=== PATIENT | male | born 1990 | race American Indian/Alaskan Native ===

== ENCOUNTER 2019-08-31 02:14 | Emergency (ER) | payer SELFPAY ==
--- NOTE | 2019-08-31 02:49 | Emergency Department Report ---
ED Psych HPI - General Chief Complaint: Psych Stated Complaint: HEARING VOICES/MH EVAL Time Seen by Provider: 08/31/19 02:39 Source: patient, RN notes reviewed Mode of arrival: Ambulatory Limitations: No Limitations - History of Present Illness Initial Comments: This is a 29-year-old gentleman. The patient is not known to this provider previously. The patient states that he does not have a primary care doctor. He has a medical history of chronic cannabis consumption. He presents to the ER with request for psychiatric evaluation. He reports that his father has a psychiatric history. He reports that over the past year he has been having vivid dreams, nightmares, occasional hallucinations. He does not associate these with any particular inciting factors. He denies physical pain at this time. He denies hallucinations, homicidality and suicidality. -: month(s) Associated Psychiatric Symptoms: racing thoughts, auditory hallucinations History of same: Yes Quality: intermittent Improves With: none Worsens With: none Associated Symptoms: denies other symptoms - Related Data Allergies Allergy/AdvReac Type Severity Reaction Status Date / Time No Known Allergies Allergy Unverified 08/31/19 02:28 ED Review of Systems ROS: Stated complaint: HEARING VOICES/MH EVAL Other details as noted in HPI Constitutional: denies: fever Eyes: denies: eye discharge ENT: denies: congestion Respiratory: denies: wheezing Cardiovascular: denies: syncope Gastrointestinal: denies: abdominal pain Musculoskeletal: denies: back pain Psychiatric: anxiety, auditory hallucinations. denies: homicidal thoughts, suicidal thoughts ED Past Medical Hx - Past Medical History Previous Medical History?: Yes Hx Psychiatric Treatment: Yes (Anxiety, Depression) Hx HIV: Yes - Surgical History Past Surgical History?: Yes Additional Surgical History: Right leg. Right Achilles - Social History Smoking Status: Current Every Day Smoker Substance Use Type: Marijuana ED Physical Exam - General Limitations: No Limitations General appearance: alert, in no apparent distress - Head Head exam: Present: atraumatic, normocephalic - Eye Eye exam: Present: normal appearance, EOMI, other (visual acuity intact to finger counting and color perception at a close distance.). Absent: nystagmus - ENT ENT exam: Present: normal exam, normal orophraynx, mucous membranes moist, normal external ear exam - Neck Neck exam: Present: normal inspection, full ROM - Respiratory Respiratory exam: Present: normal lung sounds bilaterally. Absent: respiratory distress - Cardiovascular Cardiovascular Exam: Present: regular rate, normal rhythm, normal heart sounds. Absent: bradycardia, tachycardia, irregular rhythm, systolic murmur, diastolic murmur, rubs, gallop - GI/Abdominal GI/Abdominal exam: Present: soft. Absent: distended, tenderness, guarding, rebound, rigid, pulsatile mass - Rectal Rectal exam: Present: deferred - Extremities Exam Extremities exam: Present: normal inspection, full ROM, other (2+ pulses noted in bilateral upper extremities. There is no long bony tenderness. The pelvis is stable and is nontender. Compartments are soft) - Back Exam Back exam: Present: normal inspection. Absent: tenderness, CVA tenderness (R), CVA tenderness (L), paraspinal tenderness, vertebral tenderness - Neurological Exam Neurological exam: Present: alert, oriented X3, normal gait, other (there is no facial droop. The tongue is midline. Extraocular movements are intact bilaterally. Patient speaking in full complete sentences. Shoulder shrug is intact bilaterally. Hearing is grossly intact bilaterally. Visual acuity intact to finger counting and color perception at a close distance. 5/5 strength 4 extremities. Sensation intact to light touch in 4 extremities.). Absent: motor sensory deficit - Psychiatric Psychiatric exam: Present: anxious. Absent: homicidal ideation, suicidal ideation - Skin Skin exam: Present: warm, dry, intact, normal color. Absent: rash ED Course Vital Signs 08/31/19 02:18 Temperature 99.2 F Pulse Rate 94 H Respiratory 16 Rate Blood Pressure 149/102 O2 Sat by Pulse 100 Oximetry - Reevaluation(s) Reevaluation #1: 08/31/19 02:50 Vital Signs 08/31/19 02:18 Temperature 99.2 F Pulse Rate 94 H Respiratory 16 Rate Blood Pressure 149/102 O2 Sat by Pulse 100 Oximetry ED Medical Decision Making - Medical Decision Making Differential diagnosis, including not limited to: Anxiety, mood disorder, chronic cannabis use Assessment and plan: 29-year-old gentleman with 1 year of nonspecific complaints. He is afebrile with reassuring vital signs. He appears to be somewhat anxious. There is no neck stiffness, there are no meningeal signs, he is clinically sober, he exhibits decision making capacity, and he is here from distracting injury. He is able to participate in his care very lucidly. He does not endorse any acute medical complaints at this time. He is not psychotic at this time. He does not meet criteria for 1013 hold or involuntary psychiatric hold. The patient was strongly encouraged to discontinue marijuana consumption. He will be given outpatient resources to follow up. He does not appear to have an emergent medical condition at this time. He does not appear to have an emergent psychiatric condition at this time. He states that he is not suicidal, not homicidal, and he states that he has not overdosed. Critical care attestation.: If time is entered above; I have spent that time in minutes in the direct care of this critically ill patient, excluding procedure time. ED Disposition Clinical Impression: History of marijuana use, General medical exam Disposition: TO HOME OR SELFCARE Is pt being admited?: No Does the pt Need Aspirin: No Condition: Stable Additional Instructions: Recommend that the patient discontinue marijuana consumption. Recommend the patient follow up with an outpatient primary care doctor within the next 4-6 weeks. Patient may follow up with any of the listed outpatient psychiatric facilities that were provided to him. Please return to the emergency room right away with new, worsened or different symptoms, or symptoms not present on the initial emergency room evaluation. Referrals: PRIMARY CARE [Primary Care Provider] - 3-5 Days [facility] [Provider Group] - 3-[address] [facility] [Provider Group] - 3-5 Days [facility] [Outside] - 3-5 Days
[2019-08-31 02:50] LABS: Bilirubin,Urine NEG (Negative); Blood,Urine MOD (Negative); Color,Urine Yellow (Yellow); Mucus,Urine 2+ /HPF; Protein,Urine <15 mg/dL mg/dL (Negative)
[2019-08-31 02:54] VITALS: BP 141/94
[2019-08-31 02:54] LABS: Amphetamine Screen,Urine PRESUMPTIVE NEGATIVE; Benzodiazepines Screen,Urine PRESUMPTIVE NEGATIVE; Cocaine Screen,Urine PRESUMPTIVE NEGATIVE; Methadone Screen,Urine PRESUMPTIVE NEGATIVE; Opiate Screen,Urine PRESUMPTIVE NEGATIVE
[2019-08-31 03:23] LABS: Cannabinoid Screen,Urine PRESUMPTIVE POSITIVE
== END 2019-08-31 03:32 | disposition home or self-care (01) ==
LOC: EEVIPCON 02:14 → ED 02:14
DX: F12.90 Cannabis use, unspecified, uncomplicated (principal); F41.9 Anxiety disorder, unspecified; F32.9 Major depressive disorder, single episode, unspecified; F17.200 Nicotine dependence, unspecified, uncomplicated
CPT/HCPCS: 80307; 81001; 99283

== ENCOUNTER 2019-10-24 04:32 | Emergency (ER) | payer BC ==
--- NOTE | 2019-10-24 07:04 | Emergency Department Report ---
ED ENT HPI - General Chief complaint: Earache Stated complaint: INNER EAR ACHE, WRIST AND KNEE PAIN, HEADACHE Time Seen by Provider: 10/24/19 06:33 Source: patient Mode of arrival: Ambulatory Limitations: No Limitations - History of Present Illness Initial comments: 29-year-old male past medical history anxiety, depression, HIV with undetectable viral load presents to the hospital complaining of worsening of chronic ear symptoms. Since February or March patient has had intermittent ear pain and buzzing sensation in the ear. He is also hearing voices. He states he has multiple multiple ER as and has had psychiatric evaluation. He has been referred to ENT but has not yet followed up. He comes in today because he is having worsening bilateral aching ear pain that switch his back and forth. He also is having a buzzing sensation to both his ears. When buzzing/ringing sensation occurs he has pain to his joints including wrists and knees. No complaints of fever or ear trauma. - Related Data Previous Rx's Medication Instructions Recorded Last Taken Type Amoxicillin/K Clav Tab [Augmentin 1 tab PO Q12HR #14 tab 10/24/19 Unknown Rx 875 mg] Ibuprofen [Motrin] 800 mg PO Q8HR PRN #20 tablet 10/24/19 Unknown Rx Allergies Allergy/AdvReac Type Severity Reaction Status Date / Time No Known Allergies Allergy Unverified 08/31/19 02:28 ED Dental HPI - General Chief complaint: Earache Stated complaint: INNER EAR ACHE, WRIST AND KNEE PAIN, HEADACHE Time Seen by Provider: 10/24/19 06:33 Source: patient Mode of arrival: Ambulatory Limitations: No Limitations - Related Data Previous Rx's Medication Instructions Recorded Last Taken Type Amoxicillin/K Clav Tab [Augmentin 1 tab PO Q12HR #14 tab 10/24/19 Unknown Rx 875 mg] Ibuprofen [Motrin] 800 mg PO Q8HR PRN #20 tablet 10/24/19 Unknown Rx Allergies Allergy/AdvReac Type Severity Reaction Status Date / Time No Known Allergies Allergy Unverified 08/31/19 02:28 ED Review of Systems ROS: Stated complaint: INNER EAR ACHE, WRIST AND KNEE PAIN, HEADACHE Other details as noted in HPI Comment: All other systems reviewed and negative ED Past Medical Hx - Past Medical History Previous Medical History?: Yes Hx Psychiatric Treatment: Yes (Anxiety, Depression) Hx HIV: Yes - Surgical History Past Surgical History?: Yes Additional Surgical History: Right leg. Right Achilles - Social History Smoking Status: Current Every Day Smoker Substance Use Type: Marijuana - Medications Home Medications: Home Medications Medication Instructions Recorded Confirmed Last Taken Type Amoxicillin/K Clav Tab [Augmentin 1 tab PO Q12HR #14 tab 10/24/19 Unknown Rx 875 mg] Ibuprofen [Motrin] 800 mg PO Q8HR PRN #20 tablet 10/24/19 Unknown Rx ED Physical Exam - General Limitations: No Limitations - Other Other exam information: General: No acute distress Head: Atraumatic Eyes: normal appearance ENT: Moist mucous membranes, right TM normal. Left ear canal red with mild redness to the left TM with positive light reflex. Neck: Normal appearance, no midline tenderness Chest: Clear to auscultation bilaterally CV: Regular rate and rhythm Abdomen: Soft, normal bowel sounds, nontender, nondistended, no rebound or guarding Back: Normal inspection Extremity: Normal inspection infection, full range of motion, no joint swelling, redness, or warmth Neuro: Alert O x 3, no facial asymmetry, speech clear, no gross motor sensory deficit Psych: Appropriate behavior Skin: No rash ED Course Vital Signs 10/24/19 05:36 Temperature 98.6 F Pulse Rate 68 Respiratory 16 Rate Blood Pressure 141/78 [Left] O2 Sat by Pulse 100 Oximetry ED Medical Decision Making - Medical Decision Making Patient will be treated with antibiotics and NSAIDs. ENT follow-up advised to rule out ear pathology for this ongoing complaint. Psychiatric disorder also in the differential - Differential Diagnosis otitis, psychosis, medication reaction,inner ear abnormality, labyrinthitis Critical Care Time: No Critical care attestation.: If time is entered above; I have spent that time in minutes in the direct care of this critically ill patient, excluding procedure time. ED Disposition Clinical Impression: Earache symptoms in both ears, Infection of left ear, Auditory complaints of both ears, Arthralgia Disposition: DC-01 TO HOME OR SELFCARE Is pt being admited?: No Does the pt Need Aspirin: No Condition: Stable Instructions: Earache (ED), Arthralgia (ED) Additional Instructions: Take the medication as prescribed. Follow-up with your doctor or doctor/clinic provided. Return if symptoms worsen as indicated by your discharge instructions. Prescriptions: Amoxicillin/K Clav Tab [Augmentin 875 mg] 1 tab PO Q12HR #14 tab Ibuprofen [Motrin] 800 mg PO Q8HR PRN #20 tablet PRN Reason: Pain , Severe (7-10) Referrals: OTTONIEL ALBARRAN MD [Staff Physician] - 3-5 Days (ENT doctor ) CAESAR BURTON MD [Staff Physician] - 3-5 Days (ENT) Time of Disposition: 07:04
[2019-10-24 08:21] VITALS: BP 141/94
== END 2019-10-24 08:07 | disposition home or self-care (01) ==
LOC: ED 04:32
DX: H66.93 Otitis media, unspecified, bilateral (principal); F17.200 Nicotine dependence, unspecified, uncomplicated; F32.9 Major depressive disorder, single episode, unspecified; F12.10 Cannabis abuse, uncomplicated; F41.9 Anxiety disorder, unspecified; Z79.899 Other long term (current) drug therapy
CPT/HCPCS: 99282

== ENCOUNTER 2020-11-01 19:39 | Emergency (ER) | payer SELFPAY ==
--- NOTE | 2020-11-01 20:46 | Emergency Department Report ---
Blank Doc - Documentation Documentation: 30-year-old [place] male past medical history of HIV presents emerge department complaining of a 2-week history of progressive worsening lower abdominal pain which not improved following his emergency room visit at [facility] which she was diagnosed with peptic ulcer disease. Pain is sharp and shooting and radiating across his lower abdomen associated with bloody stool as well. This initial assessment/diagnostic orders/clinical plan/treatment(s) is/are subject to change based on patients health status, clinical progression and re- assessment by fellow clinical providers in the ED. Further treatment and workup at subsequent clinical providers discretion. Patient/guardian urged not to elope from the ED as their condition may be serious if not clinically assessed and managed. Initial orders include: Plan is obtain abdominal labs as well as urinalysis We will evaluate with a CT scan due to his failed outpatient therapy his continuation despite initial medical evaluation, and to evaluate further for inflammatory/infectious causes of his abdominal pain and bloody stool
[2020-11-01 20:48] VITALS: BP 135/89
[2020-11-01 21:17] LABS: Basophils # (Auto) 0.1 K/mm3 (0.0-0.1); Basophils % (Auto) 0.6 % (0.0-1.8); Eosinophils # (Auto) 0.1 K/mm3 (0.0-0.4); Eosinophils % (Auto) 1.1 % (0.0-4.3); Hematocrit 45.5 % (35.5-45.6); Hemoglobin 15.6 gm/dl (11.8-15.2); Lymphocytes # (Auto) 3.4 K/mm3 (1.2-5.4); Lymphocytes % (Auto) 35.6 % (13.4-35.0); Mean Corpuscular HGB Conc 34 % (32-34); Mean Corpuscular Volume 91 fl (84-94); Monocytes # (Auto) 0.8 K/mm3 (0.0-0.8); Monocytes % (Auto) 7.9 % (0.0-7.3); Platelet Count 277 K/mm3 (140-440); Red Cell Distribution Width 12.5 % (13.2-15.2)
[2020-11-01 21:21] LABS: Alanine Aminotransferase 52 units/L (7-56); Albumin 4.7 g/dL (3.9-5)
[2020-11-01 21:24] LABS: Bilirubin,Direct < 0.2 mg/dL (0-0.2)
[2020-11-01 21:38] LABS: Bilirubin,Urine NEG (Negative); Blood,Urine NEG (Negative); Color,Urine Yellow (Yellow); Mucus,Urine FEW /HPF; Protein,Urine <15 mg/dL mg/dL (Negative)
[2020-11-02] MEDS ORDERED: SODIUM CHLORIDE 0.9% 1000 ML 1,000 ML IV ONE (01:35)
[2020-11-02] MEDS ORDERED: PANTOPRAZOLE 40 MG INJ IV ONE (01:35)
[2020-11-02] MEDS ORDERED: HYOSCYAMINE SUBL 0.125 MG TAB SL ONE (01:35)
[2020-11-02] MEDS ORDERED: ALUM-MAG HYDROXIDE-SIMETHICONE 200-200-20MG/5ML ORAL LIQD 30 ML PO ONE (01:35)
--- NOTE | 2020-11-02 01:53 | Emergency Department Report ---
ED Abdominal Pain HPI - General Chief Complaint: Abdominal Pain Stated Complaint: ABDOMINAL,BACK PAIN Time Seen by Provider: 11/02/20 01:23 Source: patient Mode of arrival: Ambulatory Limitations: No Limitations - History of Present Illness Initial Comments: Patient is a 30-year-old male presents emergency room with complaints of upper abdominal pain that began 3 weeks ago. He states that he intermittently sees a small amount of right red blood when he wipes. He states he was already seen at another ER for this complaint and was diagnosed with PUD given prescription for omeprazole. He states he has not followed up with a GI doctor. He states he has had some intermittent diarrhea and nausea. He denies any fever, hematemesis, rectal pain, rectal drainage, melena. Discussed medical history of HIV and states that he is undetectable. No allergies to medications. - Related Data Home Medications Medication Instructions Recorded Confirmed Last Taken Bictegrav/Emtricit/Tenofov Ala 1 tab PO DAILY 06/07/20 06/11/20 06/10/20 09:00 [Biktarvy 50-200-25 mg (Nf)] atenoloL [Tenormin] 50 mg PO DAILY 06/07/20 06/11/20 06/10/20 09:00 Previous Rx's Medication Instructions Recorded Last Taken Type Sucralfate [Carafate] 1 gm PO ACHS #120 tablet 04/27/20 06/10/20 20:00 Rx Celecoxib [celeBREX] 200 mg PO BID #4 capsule 06/11/20 Unknown Rx Gabapentin 600 mg PO BID #8 capsule 06/11/20 Unknown Rx Oxycodone HCl/Acetaminophen 1 each PO Q6HR PRN #30 tablet 06/11/20 Unknown Rx [Percocet 10/325 mg] Allergies Allergy/AdvReac Type Severity Reaction Status Date / Time No Known Allergies Allergy Verified 06/07/20 16:36 ED Review of Systems ROS: Stated complaint: ABDOMINAL,BACK PAIN Other details as noted in HPI Comment: All other systems reviewed and negative ED Past Medical Hx - Past Medical History Previous Medical History?: Yes Hx Hypertension: Yes Hx Heart Attack/AMI: No Hx Liver Disease: No Hx Renal Disease: No Hx Psychiatric Treatment: Yes (Anxiety, Depression) Hx HIV: Yes - Surgical History Past Surgical History?: Yes Additional Surgical History: Right leg. Right Achilles - Social History Smoking Status: Current Every Day Smoker Substance Use Type: None - Medications Home Medications: Home Medications Medication Instructions Recorded Confirmed Last Taken Type Sucralfate [Carafate] 1 gm PO ACHS #120 tablet 04/27/20 06/11/20 06/10/20 20:00 Rx Bictegrav/Emtricit/Tenofov Ala 1 tab PO DAILY 06/07/20 06/11/20 06/10/20 09:00 History [Biktarvy 50-200-25 mg (Nf)] atenoloL [Tenormin] 50 mg PO DAILY 06/07/20 06/11/20 06/10/20 09:00 History Celecoxib [celeBREX] 200 mg PO BID #4 capsule 06/11/20 Unknown Rx Gabapentin 600 mg PO BID #8 capsule 06/11/20 Unknown Rx Oxycodone HCl/Acetaminophen 1 each PO Q6HR PRN #30 tablet 06/11/20 Unknown Rx [Percocet 10/325 mg] ED Physical Exam - General Limitations: No Limitations General appearance: alert, in no apparent distress - Head Head exam: Present: atraumatic, normocephalic - Eye Eye exam: Present: normal appearance - ENT ENT exam: Present: mucous membranes moist - Respiratory Respiratory exam: Present: normal lung sounds bilaterally. Absent: respiratory distress, wheezes, rales, rhonchi, stridor, chest wall tenderness, accessory muscle use, decreased breath sounds, prolonged expiratory - Cardiovascular Cardiovascular Exam: Present: regular rate, normal rhythm, normal heart sounds. Absent: systolic murmur, diastolic murmur, rubs, gallop - GI/Abdominal GI/Abdominal exam: Present: soft, normal bowel sounds. Absent: distended, tenderness, guarding, rebound, rigid - Rectal Rectal exam: Present: deferred - Neurological Exam Neurological exam: Present: alert, oriented X3 - Psychiatric Psychiatric exam: Present: normal affect, normal mood - Skin Skin exam: Present: warm, dry, intact ED Course Vital Signs 11/01/20 20:40 Temperature 98.0 F Pulse Rate 91 H Respiratory 18 Rate Blood Pressure 135/89 O2 Sat by Pulse 97 Oximetry ED Medical Decision Making - Lab Data Result diagrams: 11/01/20 20:49 11/02/20 Unknown Lab Results 12/18/20 12/18/20 12/18/20 Range/Units 20:49 20:49 Unknown WBC 9.7 (4.5-11.0) K/mm3 RBC 5.00 (3.65-5.03) M/mm3 Hgb 15.6 H (11.8-15.2) gm/dl Hct 45.5 (35.5-45.6) % MCV 91 (84-94) fl MCH 31 (28-32) pg MCHC 34 (32-34) % RDW 12.5 L (13.2-15.2) % Plt Count 277 (140-440) K/mm3 Lymph % (Auto) 35.6 H (13.4-35.0) % [place] % (Auto) 7.9 H (0.0-7.3) % Eos % (Auto) 1.1 (0.0-4.3) % Baso % (Auto) 0.6 (0.0-1.8) % Lymph # (Auto) 3.4 (1.2-5.4) K/mm3 [place] # (Auto) 0.8 (0.0-0.8) K/mm3 Eos # (Auto) 0.1 (0.0-0.4) K/mm3 Baso # (Auto) 0.1 (0.0-0.1) K/mm3 Seg Neutrophils % 54.8 (40.0-70.0) % Seg Neutrophils # 5.3 (1.8-7.7) K/mm3 Sodium (137-145) mmol/L Potassium (3.6-5.0) mmol/L Chloride (98-107) mmol/L Carbon Dioxide (22-30) mmol/L Anion Gap mmol/L BUN (9-20) mg/dL Creatinine (0.8-1.3) mg/dL Estimated GFR ml/min BUN/Creatinine Ratio % Glucose (75-100) mg/dL Calcium (8.4-10.2) mg/dL Total Bilirubin 0.40 (0.1-1.2) mg/dL Direct Bilirubin < 0.2 (0-0.2) mg/dL Indirect Bilirubin 0.2 mg/dL AST 29 (5-40) units/L ALT 52 (7-56) units/L Alkaline Phosphatase 78 (35-129) units/L Total Protein 7.9 (6.3-8.2) g/dL Albumin 4.7 (3.9-5) g/dL Albumin/Globulin Ratio 1.5 % Lipase 35 (13-60) units/L Urine Color Yellow (Yellow) Urine Turbidity Clear (Clear) Urine pH 5.0 (5.0-7.0) Ur Specific [place] 1.027 (1.003-1.030) Urine Protein <15 mg/dl (Negative) mg/dL Urine Glucose (UA) Neg (Negative) mg/dL Urine Ketones Neg (Negative) mg/dL Urine Blood Neg (Negative) Urine Nitrite Neg (Negative) Urine Bilirubin Neg (Negative) Urine Urobilinogen 2.0 (<2.0) mg/dL Ur Leukocyte Esterase Neg (Negative) Urine WBC (Auto) 2.0 (0.0-6.0) /HPF Urine RBC (Auto) 3.0 (0.0-6.0) /HPF Urine Mucus Few /HPF 12/19/20 Range/Units Unknown WBC (4.5-11.0) K/mm3 RBC (3.65-5.03) M/mm3 Hgb (11.8-15.2) gm/dl Hct (35.5-45.6) % MCV (84-94) fl MCH (28-32) pg MCHC (32-34) % RDW (13.2-15.2) % Plt Count (140-440) K/mm3 Lymph % (Auto) (13.4-35.0) % [place] % (Auto) (0.0-7.3) % Eos % (Auto) (0.0-4.3) % Baso % (Auto) (0.0-1.8) % Lymph # (Auto) (1.2-5.4) K/mm3 [place] # (Auto) (0.0-0.8) K/mm3 Eos # (Auto) (0.0-0.4) K/mm3 Baso # (Auto) (0.0-0.1) K/mm3 Seg Neutrophils % (40.0-70.0) % Seg Neutrophils # (1.8-7.7) K/mm3 Sodium 138 (137-145) mmol/L Potassium 4.2 (3.6-5.0) mmol/L Chloride 100.4 (98-107) mmol/L Carbon Dioxide 23 (22-30) mmol/L Anion Gap 19 mmol/L BUN 14 (9-20) mg/dL Creatinine 0.8 (0.8-1.3) mg/dL Estimated GFR > 60 ml/min BUN/Creatinine Ratio 18 % Glucose 93 (75-100) mg/dL Calcium 10.2 (8.4-10.2) mg/dL Total Bilirubin (0.1-1.2) mg/dL Direct Bilirubin (0-0.2) mg/dL Indirect Bilirubin mg/dL AST (5-40) units/L ALT (7-56) units/L Alkaline Phosphatase (35-129) units/L Total Protein (6.3-8.2) g/dL Albumin (3.9-5) g/dL Albumin/Globulin Ratio % Lipase (13-60) units/L Urine Color (Yellow) Urine Turbidity (Clear) Urine pH (5.0-7.0) Ur Specific [place] (1.003-1.030) Urine Protein (Negative) mg/dL Urine Glucose (UA) (Negative) mg/dL Urine Ketones (Negative) mg/dL Urine Blood (Negative) Urine Nitrite (Negative) Urine Bilirubin (Negative) Urine Urobilinogen (<2.0) mg/dL Ur Leukocyte Esterase (Negative) Urine WBC (Auto) (0.0-6.0) /HPF Urine RBC (Auto) (0.0-6.0) /HPF Urine Mucus /HPF - Medical Decision Making Patient is a 30-year-old male presents emergency room with complaints of upper abdominal pain that began 3 weeks ago. He states that he intermittently sees a small amount of right red blood when he wipes. He states he was already seen at another ER for this complaint and was diagnosed with PUD given prescription for omeprazole. He states he has not followed up with a GI doctor. He states he has had some intermittent diarrhea and nausea. He denies any fever, hematemesis, rectal pain, rectal drainage, melena. Discussed medical history of HIV and states that he is undetectable. No allergies to medications. VSS. labs are normal. UA is WNL. CT abd pelvis ordered prior to my examination. advised pt we would give him medications and he would need to undergo the CT and then we would discuss the results once this had been completed. He was agreeable with plan but now he states that he has to return the car he is in before 3 AM so he advised nurse that he would have to leave AMA. The patient is alert and oriented x3. The patient exhibits decision-making capacity. The patient is free from distracting injury. The risk of leaving without a complete medical examination, and AGAINST MEDICAL ADVICE, were explained to the patient, and they included , disability, paralysis, permanent loss of quality of life. Patient verbalized understanding to these and was able to articulate these risk in their own words. - Differential Diagnosis PUD, GI bleed, hemorrhoids, colitis, diverticulitis, rectal abscess Critical care attestation.: If time is entered above; I have spent that time in minutes in the direct care of this critically ill patient, excluding procedure time. ED Disposition Clinical Impression: Upper abdominal pain, Nausea, Rectal bleeding Diarrhea Qualifiers: Diarrhea type: unspecified type Qualified Code(s): R19.7 - Diarrhea, unspecified Disposition: DC-07 LEFT AGAINST MED ADVICE Is pt being admited?: No Does the pt Need Aspirin: No Condition: Undetermined Referrals: BRENDAN THOMPSON MD [Primary Care Provider] - [facility] [Provider Group] - [facility] Time of Disposition: 01:55 Print Language: YI
[2020-11-02 02:07] LABS: BUN/Creatinine Ratio 18; Blood Urea Nitrogen 14 mg/dL (9-20); Calcium 10.2 mg/dL (8.4-10.2); Hemolysis Index 16
== END 2020-11-02 01:50 | disposition left against medical advice (07) ==
LOC: ED 19:39
DX: K62.5 Hemorrhage of anus and rectum (principal); R10.10 Upper abdominal pain, unspecified; R19.7 Diarrhea, unspecified
CPT/HCPCS: 36415; 80048; 80076; 81001; 83690; 85025

== ENCOUNTER 2020-11-02 04:35 | Emergency (ER) | payer SELFPAY ==
[2020-11-02 05:15] VITALS: BP 128/86
== END 2020-11-02 11:26 | disposition left against medical advice (07) ==
LOC: ED 04:35
DX: K62.5 Hemorrhage of anus and rectum (principal); Z53.21 Procedure and treatment not carried out due to patient leaving prior to being seen by health care provider

== ENCOUNTER 2020-11-06 11:49 | Emergency (ER) | payer SELFPAY ==
--- NOTE | 2020-11-06 12:48 | Event Note ---
ED Screening Note ED Screening Note: abd pain that began a week ago no n/v/d he was here on 11/01/2020 left before having a CT scan This initial assessment/diagnostic orders/clinical plan/treatment(s) is/are subject to change based on patients health status, clinical progression and re- assessment by fellow clinical providers in the ED. Further treatment and workup at subsequent clinical providers discretion. Patient/guardian urged not to elope from the ED as their condition may be serious if not clinically assessed and managed. Initial orders include: labs, CT abd pain
[2020-11-06 13:26] LABS: Basophils % (Auto) 0.4 % (0.0-1.8); Eosinophils # (Auto) 0.1 K/mm3 (0.0-0.4); Hematocrit 44.1 % (35.5-45.6); Hemoglobin 14.9 gm/dl (11.8-15.2); Lymphocytes # (Auto) 2.9 K/mm3 (1.2-5.4); Lymphocytes % (Auto) 34.4 % (13.4-35.0); Mean Corpuscular HGB Conc 34 % (32-34); Mean Corpuscular Volume 91 fl (84-94); Monocytes # (Auto) 0.7 K/mm3 (0.0-0.8); Monocytes % (Auto) 8.1 % (0.0-7.3); Platelet Count 240 K/mm3 (140-440); Red Blood Count 4.86 M/mm3 (3.65-5.03); Red Cell Distribution Width 12.2 % (13.2-15.2)
[2020-11-06 13:46] LABS: Alanine Aminotransferase 44 units/L (7-56); Albumin 4.7 g/dL (3.9-5); BUN/Creatinine Ratio 11; Blood Urea Nitrogen 10 mg/dL (9-20); Calcium 9.5 mg/dL (8.4-10.2); Hemolysis Index 9
[2020-11-06] MEDS ORDERED: DICYCLOMINE 20 MG/2 ML INJ IM ONE (17:27)
[2020-11-06] MEDS ORDERED: ONDANSETRON 4 MG/2 ML INJ IV ONE (17:27)
[2020-11-06] MEDS ORDERED: SODIUM CHLORIDE 0.9% 1000 ML 1,000 ML IV ONE (17:27)
--- NOTE | 2020-11-06 17:56 | Cat Scan Report ---
CT ABDOMEN AND PELVIS WITH CONTRAST INDICATION / CLINICAL INFORMATION: abd pain. TECHNIQUE: Axial CT images were obtained through the abdomen and pelvis after IV contrast. All CT sc ans at this location are performed using CT dose reduction for ALARA by means of automated exposure c ontrol. COMPARISON: CT dated 12/01/2019. FINDINGS: LOWER CHEST: Unremarkable LIVER: Unremarkable GALLBLADDER/BILIARY TREE: Unremarkable PANCREAS: Unremarkable SPLEEN: Unremarkable ADRENALS: Unremarkable KIDNEYS / URETER: Unremarkable URINARY BLADDER: Unremarkable REPRODUCTIVE ORGANS: Unremarkable STOMACH / SMALL BOWEL: Stomach and small bowel are normal in caliber. No evidence of bowel inflammati on. COLON: The colon is unremarkable. The appendix is normal in caliber. LYMPH NODES: No significant adenopathy. VASCULATURE: No significant abnormality. OTHER: No free air, free fluid, or focal fluid collection is identified. SKELETAL SYSTEM: No acute osseous findings. IMPRESSION: No acute abnormality of the abdomen or pelvis. Signer Name: Servando Hastings MD Signed: 11/06/2020 5:42 PM Workstation Name: [id number]
--- NOTE | 2020-11-06 18:40 | Emergency Department Report ---
ED Abdominal Pain HPI - General Chief Complaint: Abdominal Pain Stated Complaint: BACK PAIN, ABD PAIN, HEADACHE Time Seen by Provider: 11/06/20 12:46 Source: patient Mode of arrival: Ambulatory Limitations: No Limitations - History of Present Illness Initial Comments: Patient is a 30-year-old male with history of HIV positive and peptic ulcer disease. Patient presents presents for abdominal pain with intermittent black bloody stools for the past 2 days.. Patient denies fevers or chills. There is nausea however no vomiting. Patient is able to tolerate p.o. liquids. Last bowel movement was without blood today. Patient advises adherence to antivirals and H2 doyle. Symptoms are exacerbated by p.o. intake and movement. Symptoms are relieved by nothing tried. symptoms at this time are rated at 4/10 intensity. MD Complaint: abdominal pain - Related Data Home Medications Medication Instructions Recorded Confirmed Last Taken Bictegrav/Emtricit/Tenofov Ala 1 tab PO DAILY 06/07/20 06/11/20 06/10/20 09:00 [Biktarvy 50-200-25 mg (Nf)] atenoloL [Tenormin] 50 mg PO DAILY 06/07/20 06/11/20 06/10/20 09:00 Previous Rx's Medication Instructions Recorded Last Taken Type Sucralfate [Carafate] 1 gm PO ACHS #120 tablet 04/27/20 06/10/20 20:00 Rx Celecoxib [celeBREX] 200 mg PO BID #4 capsule 06/11/20 Unknown Rx Gabapentin 600 mg PO BID #8 capsule 06/11/20 Unknown Rx Oxycodone HCl/Acetaminophen 1 each PO Q6HR PRN #30 tablet 06/11/20 Unknown Rx [Percocet 10/325 mg] Acetaminophen/Codeine [Tylenol 1 tab PO Q6H PRN #12 tab 11/06/20 Unknown Rx /Codeine # 3 tab] Dicyclomine [Bentyl] 10 mg PO QID PRN #30 capsule 11/06/20 Unknown Rx Omeprazole 40 mg PO DAILY #30 capsule. 11/06/20 Unknown Rx Sucralfate [Carafate] 1 gm PO ACHS 7 Days #28 udc 11/06/20 Unknown Rx Allergies Allergy/AdvReac Type Severity Reaction Status Date / Time No Known Allergies Allergy Verified 11/06/20 12:01 ED Review of Systems ROS: Stated complaint: BACK PAIN, ABD PAIN, HEADACHE Other details as noted in HPI Constitutional: denies: chills, fever Eyes: denies: eye pain, eye discharge, vision change ENT: denies: ear pain, throat pain Respiratory: denies: cough, shortness of breath, wheezing Cardiovascular: denies: chest pain, palpitations Gastrointestinal: abdominal pain, nausea, melena. denies: vomiting, diarrhea, constipation Genitourinary: denies: urgency, dysuria, frequency, hematuria, discharge Musculoskeletal: denies: back pain, joint swelling, arthralgia Skin: denies: rash, lesions Neurological: denies: headache, weakness, paresthesias Psychiatric: denies: anxiety, depression Hematological/Lymphatic: denies: easy bleeding, easy bruising ED Past Medical Hx - Past Medical History Hx Hypertension: Yes Hx Heart Attack/AMI: No Hx GERD: Yes Hx Liver Disease: No Hx Renal Disease: No Hx Headaches / Migraines: Yes Hx Psychiatric Treatment: Yes (Anxiety, Depression) Hx HIV: Yes - Surgical History Additional Surgical History: Right leg. Right Achilles - Social History Smoking Status: Current Every Day Smoker Substance Use Type: None - Medications Home Medications: Home Medications Medication Instructions Recorded Confirmed Last Taken Type Sucralfate [Carafate] 1 gm PO ACHS #120 tablet 04/27/20 06/11/20 06/10/20 20:00 Rx Bictegrav/Emtricit/Tenofov Ala 1 tab PO DAILY 06/07/20 06/11/20 06/10/20 09:00 History [Biktarvy 50-200-25 mg (Nf)] atenoloL [Tenormin] 50 mg PO DAILY 06/07/20 06/11/20 06/10/20 09:00 History Celecoxib [celeBREX] 200 mg PO BID #4 capsule 06/11/20 Unknown Rx Gabapentin 600 mg PO BID #8 capsule 06/11/20 Unknown Rx Oxycodone HCl/Acetaminophen 1 each PO Q6HR PRN #30 tablet 06/11/20 Unknown Rx [Percocet 10/325 mg] Acetaminophen/Codeine [Tylenol 1 tab PO Q6H PRN #12 tab 11/06/20 Unknown Rx /Codeine # 3 tab] Dicyclomine [Bentyl] 10 mg PO QID PRN #30 capsule 11/06/20 Unknown Rx Omeprazole 40 mg PO DAILY #30 capsule. 11/06/20 Unknown Rx Sucralfate [Carafate] 1 gm PO ACHS 7 Days #28 udc 11/06/20 Unknown Rx ED Physical Exam - General Limitations: No Limitations General appearance: alert, in no apparent distress - Head Head exam: Present: atraumatic, normocephalic - Eye Eye exam: Present: normal appearance - ENT ENT exam: Present: mucous membranes moist - Neck Neck exam: Present: normal inspection, full ROM. Absent: tenderness - Respiratory Respiratory exam: Present: normal lung sounds bilaterally, chest wall tenderness. Absent: wheezes, stridor - Cardiovascular Cardiovascular Exam: Present: regular rate, normal rhythm, normal heart sounds - GI/Abdominal GI/Abdominal exam: Present: soft, normal bowel sounds. Absent: distended, tenderness, guarding, rebound, rigid, bruit, hernia - Rectal Rectal exam: Present: deferred - Extremities Exam Extremities exam: Present: normal inspection, full ROM, normal capillary refill. Absent: tenderness, pedal edema - Back Exam Back exam: Present: normal inspection, full ROM. Absent: tenderness, CVA tenderness (R), CVA tenderness (L), rash noted - Neurological Exam Neurological exam: Present: alert, oriented X3, CN II-XII intact, normal gait, reflexes normal - Psychiatric Psychiatric exam: Present: normal affect, normal mood - Skin Skin exam: Present: warm, dry, intact, normal color. Absent: rash ED Course Vital Signs 11/06/20 12:05 Temperature 98.4 F Pulse Rate 86 Respiratory 14 Rate Blood Pressure 140/86 O2 Sat by Pulse 96 Oximetry ED Medical Decision Making - Lab Data Result diagrams: 11/06/20 13:08 11/06/20 13:08 Labs 11/06/20 11/06/20 11/06/20 13:08 13:08 17:34 WBC 8.4 RBC 4.86 Hgb 14.9 Hct 44.1 MCV 91 MCH 31 MCHC 34 RDW 12.2 L Plt Count 240 Lymph % (Auto) 34.4 [place] % (Auto) 8.1 H Eos % (Auto) 1.0 Baso % (Auto) 0.4 Lymph # (Auto) 2.9 [place] # (Auto) 0.7 Eos # (Auto) 0.1 Baso # (Auto) 0.0 Seg Neutrophils % 56.1 Seg Neutrophils # 4.7 APTT 30.5 Sodium 139 Potassium 4.6 Chloride 102.1 Carbon Dioxide 30 D Anion Gap 12 BUN 10 Creatinine 0.9 Estimated GFR > 60 BUN/Creatinine Ratio 11 Glucose 93 Lactic Acid Calcium 9.5 Total Bilirubin 0.40 AST 24 ALT 44 Alkaline Phosphatase 80 Total Protein 8.5 H Albumin 4.7 Albumin/Globulin Ratio 1.2 Lipase 22 11/06/20 17:34 WBC RBC Hgb Hct MCV MCH MCHC RDW Plt Count Lymph % (Auto) [place] % (Auto) Eos % (Auto) Baso % (Auto) Lymph # (Auto) [place] # (Auto) Eos # (Auto) Baso # (Auto) Seg Neutrophils % Seg Neutrophils # APTT Sodium Potassium Chloride Carbon Dioxide Anion Gap BUN Creatinine Estimated GFR BUN/Creatinine Ratio Glucose Lactic Acid 1.30 Calcium Total Bilirubin AST ALT Alkaline Phosphatase Total Protein Albumin Albumin/Globulin Ratio Lipase - Radiology Data Radiology results: report reviewed, image reviewed Findings Reporting MD: Servanod Hastings Dictation Time: November 06, 2020 16:42 Serology Teacher: Not available Purse Seiner Date: CT ABDOMEN AND PELVIS WITH CONTRAST INDICATION / CLINICAL INFORMATION: abd pain. TECHNIQUE: Axial CT images were obtained through the abdomen and pelvis after IV contrast. All CT scans at this location are performed using CT dose reduction for ALARA by means of automated exposure control. COMPARISON: CT dated 12/01/2019. FINDINGS: LOWER CHEST: Unremarkable LIVER: Unremarkable GALLBLADDER/BILIARY TREE: Unremarkable PANCREAS: Unremarkable SPLEEN: Unremarkable ADRENALS: Unremarkable KIDNEYS / URETER: Unremarkable URINARY BLADDER: Unremarkable REPRODUCTIVE ORGANS: Unremarkable STOMACH / SMALL BOWEL: Stomach and small bowel are normal in caliber. No evidence of bowel inflammation. COLON: The colon is unremarkable. The appendix is normal in caliber. LYMPH NODES: No significant adenopathy. VASCULATURE: No significant abnormality. OTHER: No free air, free fluid, or focal fluid collection is identified. SKELETAL SYSTEM: No acute osseous findings. IMPRESSION: No acute abnormality of the abdomen or pelvis. Signer Name: Servando Hastings MD Signed: 11/06/2020 4:42 PM Workstation Name: [id number] - Medical Decision Making CT abdomen pelvis no bleed no mass no soft tissue abnormality. Symptoms are improved with medications given in ED. Plan refill H2 doyle. Patient will follow-up with PCP in 2 to 3 days. Patient DC'd home with prescriptions. Patient verbalized agreement and understanding with same. Patient DC'd in stable condition at this time. Critical care attestation.: If time is entered above; I have spent that time in minutes in the direct care of this critically ill patient, excluding procedure time. ED Disposition Clinical Impression: Abdominal pain Qualifiers: Abdominal location: generalized Qualified Code(s): R10.84 - Generalized abd ominal pain Disposition: DC-01 TO HOME OR SELFCARE Is pt being admited?: No Does the pt Need Aspirin: No Condition: Stable Instructions: Abdominal Pain, Adult Prescriptions: Dicyclomine [Bentyl] 10 mg PO QID PRN #30 capsule PRN Reason: abdominal spasm Sucralfate [Carafate] 1 gm PO ACHS 7 Days #28 udc Omeprazole 40 mg PO DAILY #30 capsule. Acetaminophen/Codeine [Tylenol /Codeine # 3 tab] 1 tab PO Q6H PRN #12 tab PRN Reason: pain Referrals: LAURA REID MD [Staff Physician] - 3-5 Days [facility] [Provider Group] - 3-5 Days Forms: Work/School Release Form(ED) Time of Disposition: 18:51
[2020-11-06 20:31] VITALS: BP 132/81
== END 2020-11-06 20:30 | disposition home or self-care (01) ==
LOC: ED 11:49
DX: R10.9 Unspecified abdominal pain (principal); I10 Essential (primary) hypertension; K21.9 Gastro-esophageal reflux disease without esophagitis; G43.909 Migraine, unspecified, not intractable, without status migrainosus; F41.9 Anxiety disorder, unspecified; F32.9 Major depressive disorder, single episode, unspecified; F17.200 Nicotine dependence, unspecified, uncomplicated; Z79.899 Other long term (current) drug therapy
CPT/HCPCS: 36415; 74177; 80053; 82140; 83690; 85025; 85730; 96361; 96372; 96374; 99284; J0500; J2405; J7030; Q9967